=== PATIENT | male | born 1990 | race African-American/Black ===

== ENCOUNTER 2017-05-16 18:26 | Emergency (ER) | payer SELFPAY ==
[~2017-05-16] VITALS: Ht 167.6 cm; Wt 73.0 kg
[2017-05-16 18:51] VITALS: BP 142/82; PULSE 108; RESP 16; TEMP 98.4; O2SAT 96
--- NOTE | 2017-05-16 20:38 | PD ---
HPI Chief Complaint: Injury Time Seen by Provider: 19:45 Travel History International Travel<30 days: No Contact w/Intl Traveler<30days: No Traveled to known affect area: No History of Present Illness HPI 27 -year-old male presents to the emergency room for evaluation of left hand and left knee pain that started earlier today. Patient states his left knee gave out on him causing him to fall and strike his hand while catching himself. States his left knee now hurts in the back and if he bears weight on the heel. States he can walk on his tiptoes without pain. Denies significant pain in his hand. Patient has history of chronic left hand fractures and states he knows he broke it again. Patient has not taken anything for symptoms. Denies chronic medical conditions or daily medications. PFSH Past Medical History Medical History: Denies Significant Hx Tetanus Vaccination: Unknown Influenza Vaccination: No ?: Not Past Surgical History Surgical History: No Previous Surgery Social History Alcohol Use: Yes (occasional) Tobacco Use: Yes Substance Use: No Allergies-Medications (Allergen,Severity, Reaction): Coded Allergies: No Known Allergies (Unverified , 05/16/17) Reported Meds & Prescriptions Reported Meds & Active Scripts Active No Active Prescriptions or Reported Medications Review of Systems Except as stated in HPI: all other systems reviewed are Neg Physical Exam Narrative GENERAL: Well-nourished, well-developed male in no acute distress. Afebrile. Ambulatory. SKIN: Focused skin assessment warm/dry. No erythema or ecchymosis. HEAD: Normocephalic. EYES: No scleral icterus. No injection or drainage. NECK: Supple, trachea midline. No JVD or lymphadenopathy. CARDIOVASCULAR: Regular rate and rhythm without murmurs, gallops, or rubs. RESPIRATORY: Breath sounds equal bilaterally. No accessory muscle use. EXTREMITY: Left hand nontender to palpation. Patient has full range of motion. 2+ radial pulse. Less than 2 second capillary distally. Obvious, chronic deformity of the fifth metacarpal. No tenderness to palpation. Patient was able to lift himself off the bed with his hand without any pain. Left knee is nontender to palpation. 2+ dorsalis pedis pulse. Full range of motion of the knee. No pain with valgus or varus stress. Negative anterior and posterior drawer test. No edema or effusion. Data Data Last Documented VS Vital Signs Date Time Temp Pulse Resp B/P Pulse Ox O2 Delivery O2 Flow Rate FiO2 05/16/17 19:11 Room Air 05/16/17 18:51 98.4 108 16 142/82 96 MDM Medical Decision Making Medical Screen Exam Complete: Yes Emergency Medical Condition: Yes Medical Record Reviewed: Yes Differential Diagnosis Sprain, strain, contusion, fracture, dislocation Narrative Course 27-year-old male presents to the emergency room for evaluation of left hand and left knee pain. Patient states his left knee gave out today causing him to fall forward and landed on his hand. He has history of left hand fractures states he knows it is broken again. Physical exam is unremarkable. There is no erythema, ecchymosis, edema, tenderness to palpation, loss of range of motion , or neurovascular injury to the left hand or left knee. Patient is ambulatory. Patient was offered x-rays of the left hand to confirm fracture. He was told that x-rays of the knee are unlikely to yield any results as his injury is unlikely bony. Elim Ira knee rule excludes need for emergent imaging at this time. Patient states he does not want an x-ray of his hand and would just like pain medication. He was offered Motrin. It was recommended that he get an x-ray of his hand and he declined therefore he is leaving AGAINST MEDICAL ADVICE. Patient is Eforsce negative. Diagnosis Primary Impression: Left against medical advice Patient Instructions: General Instructions Departure Forms: Tests/Procedures Scripts No Active Prescriptions or Reported Meds Disposition: AGAINST MEDICAL ADVICE Condition: Stable Mahi Sanchez May 16, 2017 20:38
== END 2017-05-16 20:10 | disposition left against medical advice (07) ==
LOC: PHED 18:26
DX: M25.562 Pain in left knee (principal)
CPT/HCPCS: 99281